=== PATIENT | male | born 1995 | race Caucasian/White ===

== ENCOUNTER 2019-11-20 21:30 | Emergency (ER) | payer OTHER ==
[2019-11-20 21:44] VITALS: BP 130/74
--- NOTE | 2019-11-20 23:03 | ED Physician Documentation ---
PD HPI OPHTHO - Stated complaint Stated Complaint: BILAT EYE INJ - Chief complaint Chief Complaint: Heent - History obtained from History obtained from: Patient - History of Present Illness Timing - onset: Enter time (21:00), Today Timing - details: Abrupt onset Location: Both (R>L) Quality / character: Burning Associated symptoms: Redness. 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 c/o right eye burning, mild facial burning. 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 denies: Loss of vision, Decreased vision, Photophobia, Discharge PD PAST MEDICAL HISTORY - Past Medical History Past Medical History: No - Past Surgical History Past Surgical History: No - Present Medications Home Medications: Ambulatory Orders Medication Instructions Recorded Confirmed Meloxicam 15 mg PO BID PRN 11/20/19 11/20/19 - Allergies Allergies/Adverse Reactions: Allergies Allergy/AdvReac Type Severity Reaction Status Date / Time No Known Drug Allergies Allergy Verified 11/20/19 21:44 - Social History Does the pt smoke?: No Smoking Status: Never smoker Does the pt drink ETOH?: No Does the pt have substance abuse?: No - Immunizations Immunizations are current?: Yes - POLST Patient has POLST: No PD ED PE NORMAL - Vitals Vital signs reviewed: Yes - General General: Alert and oriented X 3, No acute distress, Well developed/nourished - HEENT HEENT: PERRL, EOMI - Derm Derm: Normal color, Warm and dry, No rash PD ED PE EXPANDED - Eyes Eyes: PERRL, EOMI, Normal eyelids, Injected conj/sclera (mild, right) Results - Vitals Vitals: Oxygen O2 Source Room air PD MEDICAL DECISION MAKING - ED course Complexity details: considered differential, d/w patient ED course: Poison control contacted by RN and information from the provided MSDS was discussed; they recommend eye irrigation (unnecessary if this has already been done, which was done 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 if facial burning, patient can rinse skin with cool water Q15 minutes until relief. no other measures necessary per PCC. I measured pH of right eye (lower lid and conjunctiva) using pH paper, and resu lt is 7.0 Departure - Departure Disposition: 01 Home, Self Care Clinical Impression: Chemical exposure of eye Condition: Good Instructions: ED Chemical Conjunctivitis, ED Chemical Exp Skin Follow-Up: MEKHI Castillo [Provider Group] - Tomorrow Discharge Date/Time: 11/20/19 23:19
== END 2019-11-20 23:19 | disposition home or self-care (01) ==
LOC: ED 21:30
DX: H57.11 Ocular pain, right eye (principal); Z57.5 Occupational exposure to toxic agents in other industries
CPT/HCPCS: 99282

== ENCOUNTER 2023-10-16 11:03 | Emergency (ER) | payer OTHER ==
[2023-10-16 11:35] LABS: BASOPHILS % (AUTO) 0.7 %; EOSINOPHILS # (AUTO) 0.1 10^3/uL (0.0-0.7); EOSINOPHILS % (AUTO) 2.5 %; HGB - HEMOGLOBIN 16.6 g/dL (14.0-18.0); LYMPHOCYTES # (AUTO) 1.2 10^3/uL (1.5-3.5); LYMPHOCYTES % (AUTO) 26.2 %; MEAN CORPUSCULAR HEMOGLOBIN 30.5 pg (27.0-31.0); MEAN CORPUSCULAR HGB CONC 33.2 g/dL (32.0-36.0); MEAN CORPUSCULAR VOLUME 91.9 fL (80.0-94.0); MONOCYTES # (AUTO) 0.5 10^3/uL (0.0-1.0); MONOCYTES % (AUTO) 10.7 %; NEUTROPHILS # (AUTO) 2.7 10^3/uL (1.5-6.6); NEUTROPHILS % (AUTO) 59.7 %; PLT - PLATELET COUNT 317 10^3/uL (130-450); RED BLOOD COUNT 5.44 10^6/uL (4.70-6.10); RED CELL DISTRIBUTION WIDTH 12.6 % (12.0-15.0); WHITE BLOOD COUNT 4.5 x10^3/uL (4.8-10.8)
[2023-10-16 11:52] LABS: ALBUMIN 4.6 g/dL (3.2-5.5); ALBUMIN/GLOBULIN RATIO 2.1 (1.0-2.2); BILIRUBIN,TOTAL 0.6 mg/dL (0.2-1.0); CALCIUM 9.8 mg/dL (8.5-10.3); CREATININE 0.9 mg/dL (0.6-1.3); POTASSIUM 3.8 mmol/L (3.5-4.5); TOTAL PROTEIN 6.8 g/dL (6.4-8.9)
[2023-10-16 11:52] LABS: BILIRUBIN,URINE NEGATIVE (NEGATIVE); GLUCOSE, URINE (UA) NEGATIVE (NEGATIVE); KETONES,URINE (UA) NEGATIVE (NEGATIVE); LEUKOCYTE ESTERASE, URINE NEGATIVE (NEGATIVE); NITRITE,URINE NEGATIVE (NEGATIVE); OCCULT BLOOD,URINE NEGATIVE (NEGATIVE); PH,URINE 6.5 PH (5.0-7.5); PROTEIN,URINE NEGATIVE (NEGATIVE); UROBILINOGEN,URINE 0.2 (NORMAL) E.U./dL (NORMAL)
[2023-10-16 11:53] LABS: CLARITY,URINE CLEAR (CLEAR)
[2023-10-16] MEDS ORDERED: LIDOCAINE 1% 2 ML VIAL MC ONE (14:46)
[2023-10-16] MEDS ORDERED: cefTRIAXone 500 MG VIAL IM STA (14:46)
[2023-10-16] MEDS ORDERED: DOXYCYCLINE 100 MG TABLET PO STA (14:47)
--- NOTE | 2023-10-16 14:50 | ED Physician Documentation ---
History of Present Illness - Stated complaint Stated Complaint: - Chief complaint Chief Complaint: Abd Pain - Additonal information Additional information: 28-year-old male presents emergency department for evaluation of dysuria and penile discharge. He reports he has had chlamydia twice in the past. He states he began having some mild testicular tenderness about 3 weeks ago and was told that he had epididymal cyst. However he was prescribed some antibiotics for the cyst but not for sexually-transmitted infection. He denies any received doxycycline or ceftriaxone but is unsure the name of the medication. Despite the antibiotics he continues to have some mild discomfort and yellow penile discharge. No fevers. No jose juan scrotal or testicular tenderness. Review of Systems Constitutional: denies: Fever GI: reports: Reviewed and negative : reports: Dysuria, Discharge. denies: Testicular pain Skin: reports: Reviewed and negative PD PAST MEDICAL HISTORY - Past Medical History Past Medical History: No - Past Surgical History Past Surgical History: No - Present Medications Home Medications: Ambulatory Orders Medication Instructions Recorded Confirmed Meloxicam 15 mg PO BID PRN 11/20/19 11/20/19 Doxycycline Hyclate 100 mg PO BID #20 cap 10/16/23 - Allergies Allergies/Adverse Reactions: Allergies Allergy/AdvReac Type Severity Reaction Status Date / Time No Known Drug Allergies Allergy Verified 10/16/23 11:15 - Social History Does the pt smoke?: No Smoking Status: Never smoker Does the pt drink ETOH?: No Does the pt have substance abuse?: Yes Substance Use and Type: Marijuana - Immunizations Immunizations are current?: Yes - POLST Patient has POLST: No PD ED PE NORMAL - General General: Alert and oriented X 3, No acute distress, Well developed/nourished - HEENT HEENT: Atraumatic, Moist mucous membranes - Neck Neck: Supple, no meningeal sign - Abdomen Abdomen: Normal bowel sounds, Soft - 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 No penile tenderness. Positive cremaster. No lymphadenopathy. No tenderness elicited with palpation of the scrotum or testes) - Back Back: No CVA TTP Results - Vitals Vitals: Vital Signs - 24 hr 10/16/23 11:08 Temperature 35.6 C L Heart Rate 76 Respiratory 16 Rate Blood Pressure 139/81 H O2 Saturation 99 Oxygen O2 Source Room air - Labs Labs: Laboratory Tests 1210/16/23 10/16/23 11:30 11:30 11:43 WBC 4.5 L RBC 5.44 Hgb 16.6 Hct 50.0 MCV 91.9 MCH 30.5 MCHC 33.2 RDW 12.6 Plt Count 317 MPV 10.0 Neut # (Auto) 2.7 Lymph # (Auto) 1.2 L [place] # (Auto) 0.5 Eos # (Auto) 0.1 Baso # (Auto) 0.0 Absolute Nucleated RBC 0.00 Nucleated RBC % 0.0 Sodium 140 Potassium 3.8 Chloride 106 Carbon Dioxide 27 Anion Gap 7.0 BUN 9 Creatinine 0.9 Estimated GFR (MDRD) 101 Glucose 105 H Calcium 9.8 Total Bilirubin 0.6 AST 14 ALT 18 Alkaline Phosphatase 52 Total Protein 6.8 Albumin 4.6 Globulin 2.2 Albumin/Globulin Ratio 2.1 Lipase 14 Urine Color YELLOW Urine Clarity CLEAR Urine pH 6.5 Ur Specific [place] 1.015 Urine Protein NEGATIVE Urine Glucose (UA) NEGATIVE Urine Ketones NEGATIVE Urine Occult Blood NEGATIVE Urine Nitrite NEGATIVE Urine Bilirubin NEGATIVE Urine Urobilinogen 0.2 (NORMAL) Ur Leukocyte Esterase NEGATIVE Ur Microscopic Review NOT INDICATED Urine Culture Comments NOT INDICATED PD Medical Decision Making - ED course Complexity details: reviewed results, re-evaluated patient, d/w patient ED course: 28-year-old male here for evaluation of penile discharge in the setting of remote STI. However he has recently been sexually active without a condom now has yellow penile discharge. It appears that he was prescribed Bactrim for epididymal cysts on 28 September without change in his urinary symptoms or discharge. GC testing is pending but feel would be best to treat him empiricall y today. Thus he was administered 500 mg ceftriaxone IM and will be started on a 10-day course of doxycycline. No scrotal or testicular tenderness was elicited therefore I have lower suspicion for orchiditis or acute epididymitis. The treatment as above however would adequately treat both. He is advised to follow very closely with [facility] and avoid any further sexual activity until he can confirm that he is free of STD and his symptoms have resolved. Departure - Departure Disposition: 01 Home, Self Care Clinical Impression: Penile discharge, Concern about STD in male without diagnosis Condition: Stable Record reviewed to determine appropriate education?: Yes Prescriptions: Doxycycline Hyclate 100 mg PO BID #20 cap Comments: Will ragsdale do have chlamydia gonorrhea testing pending at this time. However your symptoms and the discharge from your penis are suggestive of gonorrhea. We have administered you 500 mg of ceftriaxone today in the emergency department and a prescription for [place]xy[place] which you [place] take [place]. [place] is imperative that you avoid any sexual activity until your symptoms fully resolve and you have a new test confirming no STD. I recommend very prompt follow-up with [facility]. Return immediately to the ER for any new or worsening symptoms.
[2023-10-16 15:19] VITALS: BP 131/80; O2SAT 100
[2023-10-16 16:09] LABS: CHLAMYDIA TRACHOMATIS DNA NEGATIVE (NEGATIVE); NEISSERIA GONORRHOEAE DNA NEGATIVE (NEGATIVE); TRICHOMONAS VAGINALIS DNA NEGATIVE (NEGATIVE)
== END 2023-10-16 15:14 | disposition home or self-care (01) ==
LOC: ED 11:03
DX: R36.9 Urethral discharge, unspecified (principal)
CPT/HCPCS: 36415; 80053; 81003; 83690; 85025; 87491; 87591; 87661; 96372; 99283; A9270; 81001; 81599; 87086